=== PATIENT | male | born 2000 | race Caucasian/White ===

== ENCOUNTER 2025-01-17 00:21 | Emergency (ER) | payer BC ==
[2025-01-17] MEDS: FLUORESCEIN STRIPS 1 MG STRIP RIGHT EYE ONE (01:07)
[2025-01-17] MEDS: PROPARACAINE 0.5% OPHTH DROPS 15 ML BTL RIGHT EYE STA (01:07)
--- NOTE | 2025-01-17 01:43 | ED ---
General Adult HPI - General Chief complaint: Eye Problems Stated complaint: eye issue Time Seen by Provider: 01/17/25 00:46 Source: patient, RN notes reviewed Mode of arrival: ambulatory Limitations: no limitations - History of Present Illness Initial comments: 24-year-old male presents to the emergency department for evaluation of right eye issue. Patient notes that he was rubbing his eye very forcefully earlier today. He notes that hours following this he noticed that his eye had a different appearance. Eyes any visual changes. Denies any pain to the eye itself. Denies any pain with extraocular movements. Denies any discharge from the eye. - Related Data Allergies Allergy/AdvReac Type Severity Reaction Status Date / Time No Known Allergies Allergy Verified 01/17/25 00:25 Review of Systems ROS Statement: Those systems with pertinent positive or pertinent negative responses have been documented in the HPI. ROS Other: All systems not noted in ROS Statement are negative. Past Medical History Past Medical History: No Reported History History of Any Multi-Drug Resistant Organisms: None Reported Past Surgical History: No Surgical Hx Reported Past Psychological History: No Psychological Hx Reported Smoking Status: Never smoker Past Alcohol Use History: None Reported Past Drug Use History: None Reported General Exam Limitations: no limitations General appearance: alert, in no apparent distress Head exam: Present: atraumatic, normocephalic, normal inspection Eye exam: Present: PERRL, EOMI, other (chemosis without hemorrhage present to the right eye; visual acuity 20/40 bilaterally; no evidence of corneal abrasion or foreign body with gonzalez lamp examination). Absent: scleral icterus, conjunctival injection, periorbital swelling ENT exam: Present: normal exam, mucous membranes moist Respiratory exam: Present: normal lung sounds bilaterally. Absent: respiratory distress, wheezes, rales, rhonchi, stridor Cardiovascular Exam: Present: regular rate, normal rhythm, normal heart sounds. Absent: systolic murmur, diastolic murmur, rubs, gallop, clicks Neurological exam: Present: alert, oriented X3 Psychiatric exam: Present: normal affect, normal mood Skin exam: Present: warm, dry, intact, normal color. Absent: rash Course Vital Signs 01/17/25 01/17/25 00:25 01:55 Temperature 98.1 F 98 F Pulse Rate 79 81 Respiratory 16 18 Rate Blood Pressure 143/82 125/77 O2 Sat by Pulse 99 98 Oximetry Medical Decision Making - Medical Decision Making Was pt. sent in by a medical professional or institution (JOHANNA Perkins, PHARMACOVIGILANCE SPECIALIST, urgent care, hospital, or snf...) When possible be specific @ -No Did you speak to anyone other than the patient for history (EMS, parent, family, police, friend...)? What history was obtained from this source @ -No Did you review nursing and triage notes (agree or disagree)? Why? @ -I reviewed and agree with nursing and triage notes Were old charts reviewed (outside hosp., previous admission, EMS record, old EKG, old radiological studies, urgent care reports/EKG's, snf records)? Report findings @ -No old charts were reviewed Differential Diagnosis (chest pain, altered mental status, abdominal pain women, abdominal pain men, vaginal bleeding, weakness, fever, dyspnea, syncope, headache, dizziness, GI bleed, back pain, seizure, CVA, palpatations, mental health, musculoskeletal)? @ -Corneal abrasion, conjunctivitis, iritis, chemosis, this this is not inclusive EKG interpreted by me (3pts min.). @ -None X-rays interpreted by me (1pt min.). @ -None done CT interpreted by me (1pt min.). @ -None done U/S interpreted by me (1pt. min.). @ -None done What testing was considered but not performed or refused? (CT, X-rays, U/S, labs)? Why? @ -None What meds were considered but not given or refused? Why? @ -None Did you discuss the management of the patient with other professionals (professionals i.e. JOHANNA Perkins, PHARMACOVIGILANCE SPECIALIST, lab, RT, psych nurse, social media marketing analyst, asset protection detective, teacher, environmental conservation officer, case sealer)? Give summary @ -No Was smoking cessation discussed for >3mins.? @ -No Was critical care preformed (if so, how long)? @ -No Were there social determinants of health that impacted care today? How? (Homelessness, low income, unemployed, alcoholism, drug addiction, transportatio n, low edu. Level, literacy, decrease access to med. care, penitentiary, rehab)? @ -No Was there de-escalation of care discussed even if they declined (Discuss DNR or withdrawal of care, Hospice)? DNR status @ -No What co-morbidities impacted this encounter? (DM, HTN, Smoking, COPD, CAD, Cancer, CVA, ARF, Chemo, Hep., AIDS, mental health diagnosis, sleep apnea, morbid obesity)? @ -None Was patient admitted / discharged? Hospital course, mention meds given and route, prescriptions, significant lab abnormalities, going to OR and other pertinent info. @ -Discharge. Patient presented to the emergency department for evaluation of right eye issue. Patient has no visible foreign body or corneal abrasion on Gonzalez lamp examination, patient does have visible chemosis to the right eye without evidence of hemorrhage. This is likely due to the forceful rubbing of the eye. Visual acuity is 20/40 bilaterally. Patient declined any visual changes or pain with extraocular movements at this time. Patient will be advised to follow-up with ophthalmology. Patient understanding agreeable with plan. Patient stable at time of discharge. Case discussed with Dr. Reid. Undiagnosed new problem with uncertain prognosis? @ -No Drug Therapy requiring intensive monitoring for toxicity (Heparin, Nitro, Insulin, Cardizem)? @ -No Were any procedures done? @ -No Diagnosis/symptom? @ -Chemosis Acute, or Chronic, or Acute on Chronic? @ -Acute Uncomplicated (without systemic symptoms) or Complicated (systemic symptoms)? @ -Uncomplicated Side effects of treatment? @ -No Exacerbation, Progression, or Severe Exacerbation? @ -No Poses a threat to life or bodily function? How? (Chest pain, USA, VT, pneumonia, PE, COPD, DKA, ARF, appy, cholecystitis, CVA, Diverticulitis, Homicidal, Suicidal, threat to staff... and all critical care pts) @ -No Disposition Clinical Impression: Chemosis of conjunctiva Disposition: HOME SELF-CARE Condition: Stable Instructions (If sedation given, give patient instructions): Conjunctivitis (ED) Additional Instructions: Please follow up with ophthalmology. Return to the emergency department for new or worsening symptoms. Is patient prescribed a controlled substance at d/c from ED?: No Referrals: None,Stated [Primary Care Provider] - 1-2 days Ollie Handy MD [STAFF PHYSICIAN] - 1-2 days Luis Graves MD [STAFF PHYSICIAN] - 1-2 days Rozina Mahoney MD [STAFF PHYSICIAN] - 1-2 days
[2025-01-17 01:57] VITALS: BP 125/77; PULSE 81; RESP 18; TEMP 98
== END 2025-01-17 01:57 | disposition home or self-care (01) ==
LOC: EC 00:21
DX: H11.429 Conjunctival edema, unspecified eye (principal)
CPT/HCPCS: 99283